=== PATIENT | female | born 1945 | race Caucasian/White ===

== ENCOUNTER 2025-09-09 10:45 | Outpatient (CLI) | payer MEDICARE, SELFPAY ==
--- NOTE | 2025-09-09 11:00 | MM_ITS ---
WS: [id number] SCREENING DIGITAL BREAST TOMOSYNTHESIS MAMMOGRAM WITH CAD HISTORY: SCREENING COMPARISON: 06/02/2020 Bilateral CC and MLO with tomosynthesis and synthetic mammography submitted. Computer aided detection analyzed. Breast composition: There are scattered areas of fibroglandular density. High density irregular mass in the medial inferior LEFT breast measures 7 x 4 x 6 mm and is new since 2019. There are additional biopsy clips in the anterior LEFT breast. Benign rodlike and round calcifications in each breast. MM/MM scr tomosynthesis [id number] IMPRESSION: BI-RADS: 0 - Incomplete: Need additional imaging evaluation FOLLOW UP: Need Additional Imaging LEFT breast: Spot compression views (CC and MLO). True ML. Ultrasound to follow if abnormality persists.
== END 2025-09-09 10:46 | disposition home or self-care (01) ==
LOC: MOBLMAM 10:51
PROVIDERS: PCP Nurse Practitioner Primary Care; Visit Provider Nurse Practitioner Primary Care
DX: Z12.31 Encounter for screening mammogram for malignant neoplasm of breast (principal); R92.323 Mammographic fibroglandular density, bilateral breasts; R92.1 Mammographic calcification found on diagnostic imaging of breast; N63.20 Unspecified lump in the left breast, unspecified quadrant
CPT/HCPCS: 77063; 77067

== ENCOUNTER 2025-10-28 13:57 | Outpatient (CLI) | payer MEDICARE, SELFPAY ==
--- NOTE | 2025-10-28 14:06 | MM_ITS ---
WS: [id number] ADDITIONAL VIEWS LEFT MAMMOGRAM WITH DIGITAL BREAST TOMOSYNTHESIS. LEFT breast ultrasound, limited HISTORY: Follow-up screening mammogram. COMPARISON: 09/09/2025, 06/02/2020 Spot compression views LEFT breast in CC, MLO projections and true ML submitted with digital breast tomosynthesis and SM. Breast composition: There are scattered areas of fibroglandular density. Spiculated high density mass in the posterior medial inferior LEFT breast measures 7 x 6 x 8 mm. Benign calcifications. Postsurgical clips in the anterior LEFT breast. LEFT breast ultrasound, limited. Ultrasound directed to the inferior medial LEFT breast. At 8:00, 9 cm from the nipple is a hypoechoic mass with slightly spiculated borders measuring 0.7 x 0.6 x 0.5 cm. No increased vascularity identified. MM/MM dia LT tomosynthesis [id number] IMPRESSION: BI-RADS: 4 - Suspicious Finding - Biopsy Should Be Considered. FOLLOW UP: Biopsy Recommended Ultrasound-guided biopsy recommended of the hypoechoic mass LEFT breast at 8:00 .
== END 2025-10-28 13:58 | disposition home or self-care (01) ==
LOC: RAD 14:00
PROVIDERS: PCP Nurse Practitioner Primary Care; Visit Provider Nurse Practitioner Primary Care
DX: R92.8 Other abnormal and inconclusive findings on diagnostic imaging of breast (principal); N63.21 Unspecified lump in the left breast, upper outer quadrant; Z96.89 Presence of other specified functional implants; R92.322 Mammographic fibroglandular density, left breast
CPT/HCPCS: 76642; 77061; 77063